=== PATIENT | male | born 1960 | race Caucasian/White ===

== ENCOUNTER → 2018-01-02 | Outpatient (CLI) | payer OTHER ==
[~2018-01-02] MED LIST: TYLENOL WITH C1 EACH PO
--- NOTE | 2018-01-02 20:23 | Diagnostic Imaging Report ---
EXAM: ABDOMEN-1VIEW (KUB), DATE: 01/02/2018 3:14 PM INDICATION: Calculus of kidney. COMPARISON: 07/12/2017. FINDINGS: LINES/TUBES: Left double-J ureteral stent with proximal portion slightly caudal projected on the left flank, and distal portion coiled in the expected location of the lower bladder. No calcific densities along the course of the left ureteral stent. Previously present left sided nephrostomy tube has been removed. BOWEL PATTERN: No evidence for obstruction. SOFT TISSUES: No abnormal calcifications. No mass effect. LUNG BASES: Not included BONES: No acute findings. IMPRESSION: Interval placement of a left double-J ureteral stent. No definite calculi. Signed by: Dr. Viviane Huang M.D. on 01/02/2018 8:19 PM
== END ==
LOC: RAD 14:59
PROVIDERS: ATTEND Urology
DX: N20.0 Calculus of kidney (principal)
CPT/HCPCS: 74018

== ENCOUNTER → 2018-01-24 | Day surgery (SDC) | payer OTHER ==
[~2018-01-24] MED LIST changes: +BELLADONNA/OPIUM 60 MG SUPP PR ONE; +CEFTRIAXONE SOD 1 GM VIAL ONE; +DEXAMETHASONE SOD PHOS INJ 4 MG/ML VIAL ONE; +FENTANYL CITRATE/PF 100MCG/2 ML INJ ONE; +IOPAMIDOL 610MG/1ML 300 MG/ML VIAL IV ONE; +LIDOCAINE HCL 2% LOCAL INJ 5 ML SDV VIAL INJ ONE; +MIDAZOLAM HCL 2 MG/2 ML VIAL ONE; +ONDANSETRON HCL INJ 2 MG/ML VIAL ONE; +PROPOFOL IV EMULSION 10 MG/ML 20 ML VIAL ONE; +SEVOFLURANE INHAL SOLN 250 ML PEN BTL ONE
--- OUTSIDE RECORDS SUMMARY | 2018-01-24 09:54 | XMS REPORT ---
Demographics Address [address] [place] [address] Preferred Language Unknown Marital Status Unknown Muslim Affiliation Unknown Race Unknown Additional Race(s) Ethnic Group Unknown Author [facility] [place] Unavailable Care Team Providers Care Manager Consumer Insights Name Role Phone ROWENA SHEPPARD Unavailable Unavailable Problems This patient has no known problems. Allergies, Adverse Reactions, Alerts This patient has no known allergies or adverse reactions. Medications This patient has no known medications. Results Test Description Test Time Test Comments Text Results Atomic Results Result Comments ABDOMEN-1VIEW (KUB) [place] [address] Patient Name: ROBYN CORTES MR #: [id number] : 1960 Age/Sex: 57/M Req # : [id number] Adm Physician: Ordered by: ROWENA SHEPPARD MD Report #: [id number] Location: [facility] Room/Bed: Procedure: [id number] DX/ABDOMEN-1VIEW (KUB) Exam Date: 01/02/18 Exam Time : 1515 REPORT STATUS: Signed EXAM: ABDOMEN-1VIEW (KUB), DATE: 3:14 PM INDICATION: Calculus of kidney. COMPARISON: 07/12/2017. FINDINGS: LINES/TUBES: Left double-J ureteral stent with proximal portion slightly caudal projected on the left flank, and distal portion coiled in the expected location of the lower bladder. No calcific densities along the course of the left ureteral stent. Previously present left sided nephrostomy tube has been removed. BOWEL PATTERN: No evidence for obstruction. SOFT TISSUES: No abnormal calcifications. No mass effect. LUNG BASES: Not included BONES: No acute findings. IMPRESSION: Interval placement of a left double-J ureteral stent. No definite calculi. Signed by: Dr. Viviane Bryd M.D. on 01/02/2018 8:19 PM Dictated By: NIGEL BYRD MD, MD 18 Transcribed By: SOMMER on 01/02/182018 COPY TO: ROWENA SHEPPARD MD ABDOMEN-1VIEW (KUB) [place] [address] Patient Name: ROBYN CORTES MR #: [id number] : 1960 Age/Sex: 57/M Req # : [id number] Adm Physician: Ordered by: ROWENA SHEPPARD MD Report #: [id number] Location: OR Room/Bed: Procedure: [id number] DX/ABDOMEN-1VIEW (KUB) Exam Date: Exam Time: REPORT STATUS: Signed PROCEDURE: ABDOMEN-1VIEW (KUB) TECHNIQUE: Supine AP abdomen: 3 radiographs INDICATION: Preoperative evaluation for kidney stone surgery COMPARISON: None. FINDINGS: See conclusion. CONCLUSION: 1. Indwelling left nephrostomy. 2. No conspicuous nephrolithiasis. 3. Normal bowel gas pattern. Questionable right upper quadrant cholecystectomy clips. 4. Intact skeleton. Dictated by: Linda Vale M.D. on 07/12/2017 at 10:23 Electronically approved by: Linda Vale M.D. on 07/12/2017 at 10:23 Dictated By: LINDA VALE MD 1023 Transcribed By: HANK on 07/12/17 1023 COPY TO: ROWENA SHEPPARD MD CHEST 2 VIEWS [place] [address] Patient Name: ROBYN CORTES MR #: [id number] : 1960 Age/Sex: 57/M Req #: [id number] Adm Physician: Ordered by: ROWENA SHEPPARD MD Report #: [id number] Location: OR Room/Bed: Procedure: [id number] DX/ CHEST 2 VIEWS Exam Date: 07/10/17 Exam Time: 1330 REPORT STATUS: Signed PROCEDURE: Frontal and lateral views of the chest. COMPARISON: None. INDICATIONS: PRE-OP FINDINGS: Lines/tubes: None. Lungs: The lungs are well inflated and clear. There is no evidence of pneumonia or pulmonary edema. Pleura: There is no pleural effusion or pneumothorax. Heart and mediastinum: The heart and the mediastinum are normal. Bones: No acute bony abnormality. IMPRESSION: No acute radiographic abnormality. Dictated by: Gaviota Pollard M.D. on 07/10/2017 at 14:06 Electronically approved by: Gaviota Pollard M.D. on 07/10/2017 at 14:06 Dictated By: GAVIOTA POLLARD MD 1406 Transcribed By: HANK on 07/10/17 1406 COPY TO: ROWENA SHEPPARD MD
--- NOTE | 2018-03-18 09:27 | Operative Report ---
DATE OF PROCEDURE: January 24, 2018 PREOPERATIVE DIAGNOSES 1. Left ureterolithiasis. 2. Foreign body (left indwelling ureteral stent). POSTOPERATIVE DIAGNOSES 1. Left ureterolithiasis. 2. Foreign body (left indwelling ureteral stent). OPERATIONS PERFORMED 1. Cystourethroscopy with complicated removal of left indwelling ureteral stent (separate procedure performed for the diagnosis of the stent). 2. Left ureteroscopy (separate procedure performed to evaluate for any residual urolithiasis). 3. Radiological services for supervision and interpretation of ureteroscopy). 4. Interpretation of retrograde ureteropyelography. 5. Supervision of fluoroscopy. No radiologist present. ANESTHESIA: General. COMPLICATIONS: None. CLINICAL SUMMARY: Artur Cooper is a 57-year-old man with an indwelling ureteral stent. He has had previous ureterolithiasis. He is brought to the operating room to remove his stent and evaluate and manage any residual stones. He is aware of the risks of bleeding, infection, injury to adjacent structures, need for additional procedures, and elected to proceed. OPERATIVE PROCEDURE IN DETAIL: Informed consent was verified. Artur Cooper was properly identified and taken to the operating room and placed on the cystoscopy table in the supine position. Anesthesia was uneventfully begun. The patient was then carefully and gently repositioned in the dorsal lithotomy position with all pressure points well-padded. His genitalia were prepared and draped in the usual sterile fashion. The 22.5-Comoran cystoscope sheath with the visual obturator in place was atraumatically inserted in the patient's urethra. It was guided down the relatively unremarkable urethra through the normal sphincteric region and through the prostate bed, which was significant for early BPH, and into the patient's bladder. Panendoscopy revealed mild trabeculations and a stent emerging from left ureteral orifice. The stent was somewhat encrusted. No suspicious lesions were identified. A guidewire was then placed alongside the stent and guided to the level of the patient's kidney. The stent was then grasped, completely removed and discarded. Flexible ureteroscope was then placed over the guidewire and guided to the level of the patient's kidney. There was relative tightness at the ureteropelvic junction. There was some fine sand noted within the intrarenal collecting system and there were Daryl plaques present throughout the papilla. There were no suspicious mucosal lesions identified. We gently irrigated the sand loose thus performing stone manipulation. This sand was too small to be grasped with a basket and should be passable. We carefully examined the ureteropelvic junction. It appeared to be relatively narrowed there at that location. Will follow this up on a long-term basis. We carefully re-examined the ureter as we exited. There were no residual ureterolithiasis present. The patient's bladder was drained. The cystoscope was withdrawn. A belladonna and opium suppository was placed revealing a 30 g prostate that is smooth and nonfluctuant and without any nodules. The patient was uneventfully reversed from anesthesia and taken to the recovery room in stable condition. There were no complications to the procedure. He tolerated the procedure well. Explicit postoperative instructions were given. Will follow the patient up in the office. Job#: [id number] SANDRA
== END | disposition home or self-care (01) ==
LOC: OR 09:52
PROVIDERS: ATTEND Urology
DX: N20.1 Calculus of ureter (principal); Z46.6 Encounter for fitting and adjustment of urinary device; N40.0 Benign prostatic hyperplasia without lower urinary tract symptoms; N32.89 Other specified disorders of bladder; N28.89 Other specified disorders of kidney and ureter; R35.1 Nocturia; N39.0 Urinary tract infection, site not specified; H91.90 Unspecified hearing loss, unspecified ear; R05 Cough; R06.83 Snoring; I45.10 Unspecified right bundle-branch block; F17.200 Nicotine dependence, unspecified, uncomplicated; Z01.810 Encounter for preprocedural cardiovascular examination; Z68.33 Body mass index [BMI] 33.0-33.9, adult
CPT/HCPCS: 52351; 74420; 93005; J0696; J1100; J2001; J2250; J2405; Q9967

== ENCOUNTER → 2018-09-24 | Outpatient (CLI) | payer OTHER ==
[~2018-09-24] MED LIST changes: -BELLADONNA/OPIUM 60 MG SUPP PR ONE; -CEFTRIAXONE SOD 1 GM VIAL ONE; -DEXAMETHASONE SOD PHOS INJ 4 MG/ML VIAL ONE; -FENTANYL CITRATE/PF 100MCG/2 ML INJ ONE; -IOPAMIDOL 610MG/1ML 300 MG/ML VIAL IV ONE; -LIDOCAINE HCL 2% LOCAL INJ 5 ML SDV VIAL INJ ONE; -MIDAZOLAM HCL 2 MG/2 ML VIAL ONE; -ONDANSETRON HCL INJ 2 MG/ML VIAL ONE; -PROPOFOL IV EMULSION 10 MG/ML 20 ML VIAL ONE; -SEVOFLURANE INHAL SOLN 250 ML PEN BTL ONE
--- NOTE | 2018-09-24 18:03 | Diagnostic Imaging Report ---
RADIOGRAPH(S) OF THE ABDOMEN AND PELVIS, 2 view(s) HISTORY: History of urinary calculus COMPARISON: Abdominal pelvic radiographs January 02, 2018 FINDINGS: No specific evidence of obstruction or ileus. Interval removal of the left double-J ureteral stent. No visible definitive residual urinary tract stone. The bones are partially obscured by stool and overlying bowel gas. A few small pelvic phlebolith. IMPRESSION: 1. Interval removal of the left ureteral stent. 2. Otherwise, no significant interval change. Signed by: Dr. Lalo George D.O., M.M.M. on 09/24/2018 5:59 PM
== END ==
LOC: RAD 16:57
PROVIDERS: ATTEND Urology
DX: Z87.442 Personal history of urinary calculi (principal)
CPT/HCPCS: 74018